=== PATIENT | male | born 1960 ===

== ENCOUNTER 2018-08-01 18:02 | Emergency (ER) | payer OTHER, BC ==
[2018-08-01 18:06] VITALS: RESP 16; TEMP 98.4; O2SAT 99
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
[2018-08-01 20:49] VITALS: BP 151/81; PULSE 68
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
--- NOTE | 2018-08-02 10:17 | CARD ---
APPROVED REPORT Date of service: 08/01/2018 EKG Measurement Heart [id number] <Conclusion> Normal sinus rhythm Normal ECG
== END 2018-08-01 20:46 | disposition home or self-care (01) ==
LOC: H.ER 18:02
DX: M94.0 Chondrocostal junction syndrome [Tietze] (principal); V43.52XA Car driver injured in collision with other type car in traffic accident, initial encounter; Y92.410 Unspecified street and highway as the place of occurrence of the external cause
CPT/HCPCS: 71111; 93005; 96372; 99285; J1885